=== PATIENT | female | born 1995 | race Hispanic/Latino ===

== ENCOUNTER 2023-04-22 06:40 | Day surgery (SDC) | payer MEDICAID ==
[~2023-04-22] VITALS: Ht 139.7 cm; Wt 62.6 kg
[2023-04-22] VITALS (11 sets, daily range): BP systolic 92–104; BP diastolic 47–68; PULSE 69–107; RESP 16–22
[2023-04-22] MEDS ORDERED: PROPOFOL 10 MG/ML 20ML VIAL IV ONE (08:24)
[2023-04-22] MEDS ORDERED: LIDOCAINE PF 100MG/5ML (2%) SYRINGE 5ML ONE (08:25)
== END 2023-04-22 09:59 | disposition home or self-care (01) ==
LOC: ENDO 06:40 → DAH 06:40 → ENDO 09:59
PROVIDERS: ATTEND Internal Medicine Gastroenterology
DX: R13.10 Dysphagia, unspecified (principal); R10.13 Epigastric pain; K29.50 Unspecified chronic gastritis without bleeding; K29.80 Duodenitis without bleeding; Q90.9 Down syndrome, unspecified; F41.9 Anxiety disorder, unspecified; F32.A Depression, unspecified; Z79.899 Other long term (current) drug therapy; Z80.0 Family history of malignant neoplasm of digestive organs
CPT/HCPCS: 43239; 43248; J3490 ×2; A4620; A4215 ×2; A4223; A7002; A4222; A4221; A4663; A4216; J7030; A4606; J2001; J2704